=== PATIENT | female | born 1955 | race Caucasian/White ===

== ENCOUNTER 2016-08-31 18:08 | Emergency (ER) | payer OTHER ==
[~2016-08-31] VITALS: Ht 157.5 cm; Wt 74.8 kg
[~2016-08-31 18:08] MED LIST: AMARYL2 MG PO; Antivert PO; CRESTOR10 MG PO; CRESTOR20 MG PO; ECOTRIN325 MG PO; Ecotrin PO; FENOFIBRATE134 M1 PO; FISH OIL 1,0001 EAC7 PO; GLIMEPIRIDE2 MG PO; GLUCOPHAGE1000 MG PO; Glucophage PO; JANUMET XR 50-1 EAC1 PO; JANUVIA100 MG PO; KLONOPIN0.5 M1 PO; KlonoPIN PO; LISINOPRIL20 MG PO; LISINOPRIL5 MG PO; LOVAZA1 GM PO; METFORMIN HCL1000 M1 PO; METFORMIN HCL500 MG PO; Motrin PO; NOHOMEMEDS; Oscal 500 w/Vitamin PO; PRINIVIL5 MG PO; Protonix PO; SIMVASTATIN20 MG PO; SIMVASTATIN40 MG PO; THERAGRAN1 TABLET PO; Tylenol Regular Stre PO; ZOCOR40 MG PO; Zocor PO; simvastatin PO
[2016-08-31] MEDS ORDERED: VIBRAMYCIN100 MG PO (20:54)
[2016-08-31 22:47] VITALS: BP 116/85
== END 2016-08-31 22:50 | disposition home or self-care (01) ==
LOC: EME 18:08 → RME 18:08
DX: S61.451A Open bite of right hand, initial encounter (principal); W54.0XXA Bitten by dog, initial encounter; Z20.3 Contact with and (suspected) exposure to rabies; Z87.891 Personal history of nicotine dependence; Z88.0 Allergy status to penicillin
CPT/HCPCS: 73130; 99281; 99283